=== PATIENT | male | born 1940 | race Caucasian/White ===

== ENCOUNTER 2017-11-07 09:26 | Emergency (ER) | payer OTHER ==
[~2017-11-07] VITALS: Ht 188 cm; Wt 90.8 kg
[~2017-11-07 09:26] MED LIST: ALTACE10 MG PO; BACITRACIN3.5 GM BOTH EYES; CHILDREN'S ASPI81 M1 PO; CIPRO500 MG PO; ENDOCET 5-3251 EACH PO; FLAGYL500 MG PO; HYDROCHLOROTHIA25 MG PO; Hydrodiuril,Oretic,E PO; Keflex PO; Lopressor PO; METOPROLOL SUC100 MG PO; MICARDIS80 MG PO; MOBIC7.5 MG PO; OMEPRAZOLE20 MG PO; OXYCODONE-APAP1 EACH PO; PHENERGAN25 MG PR; Ritalin PO; STRATTERA100 MG PO; TOBREX3.5 GM BOTH EYES; TOPROL XL100 MG PO; TRAVATAN 0100 DROP/5 BOTH EYES; TRAVATAN Z5 ML BOTH EYES; ZOFRAN4 MG PO
[2017-11-07 10:24] LABS: BASOPHIL (%) 0.8 % (0-1); BASOPHIL COUNT 0.1 K/uL (0-0.1); EOSINOPHIL (%) 1.8 % (0-5); EOSINOPHIL COUNT 0.1 K/uL (0-0.3); HEMATOCRIT 42.7 % (38.0-50.0); HEMOGLOBIN 14.6 G/DL (12.5-16.6); IMMATURE GRANULOCYTE (%) 0.3 % (0.0-0.7); LYMPHOCYTE (%) 30.6 % (15-42); MCH 29.1 PG (29.0-34.0); MCHC 34.2 G/DL (30.0-36.0); MCV 85.1 FL (86-99); MONOCYTE COUNT 0.5 K/uL (0-0.8); NEUTROPHIL (%) 58.5 % (45-76); NEUTROPHIL COUNT 3.8 K/uL (1.8-6.4); PLATELET COUNT 225 K/uL (156-360); RBC DIS.WIDTH-CV 12.6 % (11.8-14.6); RED BLOOD COUNT 5.02 M/uL (4.00-5.50); WHITE BLOOD COUNT 6.5 K/uL (4.1-10.2)
[2017-11-07 10:34] LABS: CHLORIDE 104 mEq/L (99-109); POTASSIUM 4.1 mEq/L (3.7-5.4); SODIUM 139 mEq/L (136-147)
[2017-11-07 10:36] LABS: GLUCOSE 88 mg/dL (70-99)
[2017-11-07 10:40] LABS: CREATININE 1.4 mg/dL (0.6-1.3); GFR ESTIMATE (CALCULATED) 52 mL/min/ (58.99-99999)
[2017-11-07 10:41] LABS: UREA NITROGEN (BUN) 28 mg/dL (9-23)
[2017-11-07] MEDS ORDERED: ELIQUIS5 MG PO ×2 (12:03→12:06)
[2017-11-07 12:23] VITALS: BP 140/80
== END 2017-11-07 12:30 | disposition home or self-care (01) ==
LOC: EME 09:26
PROVIDERS: Emergency Medicine
DX: I82.402 Acute embolism and thrombosis of unspecified deep veins of left lower extremity (principal); Z86.718 Personal history of other venous thrombosis and embolism; I10 Essential (primary) hypertension; Z85.46 Personal history of malignant neoplasm of prostate; Z88.2 Allergy status to sulfonamides; Z87.891 Personal history of nicotine dependence
CPT/HCPCS: 80048; 85025; 85610; 99281; 99284